=== PATIENT | female | born 1990 | race Caucasian/White ===

== ENCOUNTER 2023-03-08 17:38 | Emergency (ER) | payer OTHER ==
[~2023-03-08] VITALS: Ht 162.6 cm; Wt 61.0 kg
[2023-03-08 17:42] VITALS: BP 124/68; PULSE 107; RESP 18; O2SAT 100
== END 2023-03-08 18:16 | disposition home or self-care (01) ==
LOC: ER 17:38
DX: F10.129 Alcohol abuse with intoxication, unspecified (principal); Y90.9 Presence of alcohol in blood, level not specified
CPT/HCPCS: 99283